=== PATIENT | male | born 1980 | race Caucasian/White ===

== ENCOUNTER 2017-07-17 00:19 | Emergency (ER) | payer MEDICAID, OTHER ==
[~2017-07-17] VITALS: Ht 172.7 cm; Wt 82.6 kg
[2017-07-17 00:50] VITALS: BP 133/66
--- NOTE | 2017-07-17 02:16 | NUR ---
CALLED [facility] ; NO ANSWER
--- NOTE | 2017-07-17 03:36 | NUR ---
CALLED X5; NOT IN LOBBY AGAIN. INFORMED BY ADMITTING "HE LEFT LONG WHILE AGO"
== END 2017-07-17 02:30 | disposition left against medical advice (07) ==
LOC: ER 00:21
DX: R07.9 Chest pain, unspecified (principal); Z53.21 Procedure and treatment not carried out due to patient leaving prior to being seen by health care provider
CPT/HCPCS: A4606; Z7610